=== PATIENT | female | born 1960 | race Caucasian/White ===

== ENCOUNTER 2022-03-05 11:15 | Emergency (ER) | payer OTHER ==
[2022-03-05 11:49] LABS: HEMOGLOBIN 15.5 gm/dl (12.3-15.3); RED BLOOD COUNT 5.12 M/UL (4.00-5.10); WHITE BLOOD COUNT 7.1 K/UL (4.5-11.0)
[2022-03-05 12:13] LABS: BUN/CREATININE RATIO 16 (0-10)
== END 2022-03-05 18:10 | disposition other institution (70) ==
LOC: ER1 11:15
PROVIDERS: Physician Assistant Medical
DX: K59.00 Constipation, unspecified (principal); I71.4 Abdominal aortic aneurysm, without rupture; R16.0 Hepatomegaly, not elsewhere classified; I10 Essential (primary) hypertension; F17.210 Nicotine dependence, cigarettes, uncomplicated
CPT/HCPCS: 80053; 81001; 83605; 85025; 96374; 96375; 96376; 99285; J2270; J2405; Q9967

== ENCOUNTER → 2022-03-15 | Outpatient (CLI) | payer OTHER ==
[2022-03-15 10:22] LABS: BUN/CREATININE RATIO 17 (0-10)
== END ==
LOC: US 09:22
PROVIDERS: Internal Medicine Hematology & Oncology
DX: C79.2 Secondary malignant neoplasm of skin (principal)
CPT/HCPCS: 36415; 76705; 76942; 80053

== ENCOUNTER → 2022-03-29 | Day surgery (SDC) | payer OTHER ==
[~2022-03-29] VITALS: Ht 170.2 cm; Wt 52.6 kg
[~2022-03-29] MED LIST: BENTYL 20MG TAB20 MG PO; DULOXETINE HCL30 MG PO; LISINOPRIL10 MG PO; MELATONIN5 MG PO; MORPHINE SULFAT15 M2 PO; ONDANSETRON HCL8 MG PO; OXYCODONE HCL10 MG PO; STIMULANT LAXA1 EACH PO; VALIUM 5 MG TAB5 MG PO
[2022-03-29 07:48] LABS: BUN/CREATININE RATIO 24 (0-10)
== END | disposition home or self-care (01) ==
LOC: OR 06:07
PROVIDERS: Surgery
DX: C23 Malignant neoplasm of gallbladder (principal); F17.200 Nicotine dependence, unspecified, uncomplicated
CPT/HCPCS: 71045; 77001; 80048; 93005; C1769; C1788; J0690; J1100; J1642; J2001; J2250; J2405; J2704; J3010; J7040

== ENCOUNTER → 2022-05-25 | Outpatient (CLI) | payer OTHER ==
[~2022-05-25] VITALS: Ht 170.2 cm; Wt 50.3 kg
== END ==
LOC: CT 13:00
DX: Z45.2 Encounter for adjustment and management of vascular access device (principal); C23 Malignant neoplasm of gallbladder
CPT/HCPCS: 71260; J1642; Q9967